=== PATIENT | male | born 1995 | race Caucasian/White ===

== ENCOUNTER 2018-01-22 12:23 | Emergency (ER) | payer OTHER ==
--- NOTE | 2018-01-22 13:08 | ED ---
Throat Pain/Nasal Congestion - HPI Summary HPI Summary: Pt is 22 y/o M who presents to ED c/o throat pain for 3 days. Describes the pain as being on the left side, difficult to swallow, and as if his throat is closing up. Today the pain spread to his ear and prompted him to visit the ED. Notes diaphoresis, hoarse voice, fever, general aches and chills. Denies SOB, visual changes, joint pain, or headache. Visited family [facility] where he had a negative strep test and was given amoxicillin 3 days ago, but he feels it hasn t been working since the pain has now spread. - History of Current Complaint Chief Complaint: EDThroatPain Time Seen by Provider: 01/22/18 12:54 Hx Obtained From: Patient Onset/Duration: Lasting Days, Still Present Severity: Worse Since: - today Associated Signs And Symptoms: Positive: Hoarseness - Allergies/Home Medications Allergies/Adverse Reactions: Allergies Allergy/AdvReac Type Severity Reaction Status Date / Time No Known Allergies Allergy Verified 01/22/18 12:34 PMH/Surg Hx/FS Hx/Imm Hx Endocrine/Hematology History: Denies: Hx Diabetes Cardiovascular History: Denies: Hx Cardiomegaly Infectious Disease History: No Infectious Disease History: Denies: Traveled Outside the [place] in Last 30 Days - Family History Known Family History: Positive: Hypertension - Social History Alcohol Use: Weekly Substance Use Type: Reports: None Smoking Status (MU): Never Smoked Tobacco Review of Systems Positive: Fever, Chills, Skin Diaphoresis, Other - general aches Eyes: Negative Positive: Other - hoarseness Negative: Shortness Of Breath Negative: Arthralgia Negative: Headache All Other Systems Reviewed And Are Negative: Yes Physical Exam - Summary Physical Exam Summary: Appearance: Well appearing, no pain distress Skin: warm, dry, reflects adequate perfusion Head/face: normal Eyes: EOMI, MARAL ENT: Left tonsillar enlargement with exudate, no midline shift, mucous membranes moist Neck: supple, non-tender Respiratory: CTA, breath sounds present Cardiovascular: RRR, pulses symmetrical Abdomen: non-tender, soft Bowel Sounds: present Musculoskeletal: normal, strength/ROM intact Neuro: normal, sensory motor intact, A&Ox3 Triage Information Reviewed: Yes Vital Signs On Initial Exam: Initial Vitals Temp Pulse Resp BP Pulse Ox 98 F 100 16 129/81 99 01/22/18 12:32 01/22/18 12:32 01/22/18 12:32 01/22/18 12:32 01/22/18 12:32 Vital Signs Reviewed: Yes Diagnostics - Vital Signs Vital Signs Temp Pulse Resp BP Pulse Ox 01/22/18 12:32 98 F 100 16 129/81 99 - Laboratory Lab Statement: Any lab studies that have been ordered have been reviewed, and results considered in the medical decision making process. EENT Course/Dx - Course Course Of Treatment: Negative rapid strep 2. Exudative tonsillitis mostly on the left without evidence for peritonsillar abscess. Well-appearing with mild hoarse voice but no hot potato voice or trismus. Treated with steroids here. Continue same outpatient. He is already on antibiotics. Follow-up with [facility]. - Differential Diagnoses Differential Diagnoses: Other - Mononucleosis, strep tonsillitis, viral etiology , peritonsillar abscess - Diagnoses Provider Diagnoses: Tonsillitis Discharge - Sign-Out/Discharge Documenting (check all that apply): Patient Departure - Discharge - Discharge Plan Condition: Improved Disposition: HOME Prescriptions: Dexamethasone TAB* [Decadron TAB*] 8 mg PO DAILY #8 tab Patient Education Materials: Tonsillitis (ED) Referrals: [facility] - Jhonathan PHILLIPS [Primary Care Provider] - Additional Instructions: Tylenol, ibuprofen as needed. Soft, liquid diet. Return with difficulty breathing, high fever, worse, new symptoms or other concerns as discussed. - Billing Disposition and Condition Condition: IMPROVED Disposition: Home - Attestation Statements Document Initiated by Scribe: Yes Documenting Scribe: Ainsley Carrera Provider For Whom Tai is Documenting (Include Credential): Dr. Jesús Abdullahi MD Scribe Attestation: Ainsley Ellison, scribed for Dr. Jesús Abdullahi MD on 01/22/18 at 1734. Scribe Documentation Reviewed: Yes Provider Attestation: The documentation as recorded by the Ainsley mauricio accurately reflects the service I personally performed and the decisions made by me, Dr. Jesús Abdullahi MD
[2018-01-22] MEDS ORDERED: Dexamethasone IV* 4 MG/ML 1 ML (4 MG) IM ONE (13:09)
[2018-01-22 15:26] VITALS: BP 121/85
== END 2018-01-22 15:14 | disposition home or self-care (01) ==
LOC: ED 12:23
DX: J03.90 Acute tonsillitis, unspecified (principal)
CPT/HCPCS: 87651; 96372; 99282; J1100

== ENCOUNTER 2019-03-17 14:50 | Emergency (ER) | payer OTHER ==
--- OUTSIDE RECORDS SUMMARY | 2019-03-17 14:55 | XMS REPORT | Continuity of Care Document ---
:1995 External Reference #:[id number] Author Name Lisandra Dior PA-C Address [address] [place] [address] Care Team Providers Name Role Phone [facility] Care Team Information Claim Auditor [phone] Problems Description No Information Available Social History Type Date Description Comments Sex Unknown Tobacco Use Start: Unknown Never Smoked Cigarettes Tobacco Use Start: Unknown Never Smoked Cigars Tobacco Use Start: Unknown Never Smoked A Pipe Smokeless Tobacco Never Used Smokeless Tobacco ETOH Use Currently occasionally consumes alcohol Tobacco Use Start: Unknown Patient has never smoked Smoking Status Reviewed: 02/14/19 Patient has never smoked Allergies, Adverse Reactions, Alerts Description No Known Drug Allergies Medications Active Medications SIG Qnty Indications Ordering Provider Date Clindamycin HCL take 1 pill 3 42caps J03.01 Juan Navarrete 02/14/2019 300mg times a day for 2 MD Nickie Capsules weeks. Vyvanse daily Unknown 70mg Capsules Sertraline HCL 1 by mouth every [facility] 100mg at bedtime Tablets History Medications Clindamycin HCL take 1 pill 3 42caps J32.8 Juan Navarrete 01/23/2019 - 300mg times a day for MD Nickie 02/13/2019 Capsules 2 weeks. Prednisone 4 tabs by mouth 21tabs J32.8 Juan Navarrete 01/23/2019 - 10mg Tablets every day x3 d, MD Nickie 02/13/2019 then 2 tabs by mouth every day x3d, then 1 tab by mouth every day x3d, then off Immunizations Description No Information Available Vital Signs Date Vital Result Comment 02/14/2019 10:13am Body Temperature 98.2 F Weight 160.00 lb Weight 72.576 kg Height 72 inches 6'0" Height in cm's 182.9 cm BMI (Body Mass Index) 21.7 kg/m2 01/23/2019 9:50am Weight 160.00 lb Weight 72.576 kg Height 72 inches 6'0" Height in cm's 182.9 cm BMI (Body Mass Index) 21.7 kg/m2 Results Test Acquired Date Facility Test Result H/L Range Note Laboratory test 02/14/2019 [facility] Culture <pending > finding c/o [facility] [place] [address] [phone] Procedures Description No Information Available Medical Devices Description No Information Available Encounters Type Date Location Provider Dx Diagnosis Office Visit 02/14/2019 [place] Zora [email or web address] Acute recurrent 10:00a 04/05/07 [facility] streptococcal tonsillitis Office Visit 01/23/2019 [place] Zora [email or web address] Other chronic 9:30a 04/05/07 [facility] sinusitis J03.01 Acute recurrent streptococcal tonsillitis Assessments Date Code Description Provider 02/14/2019 [email or web address] Acute recurrent streptococcal tonsillitis HERMANN Vann 01/23/2019 J32.8 Other chronic sinusitis Lisandra Dior PA-C 01/23/2019 J03.01 Acute recurrent streptococcal tonsillitis HERMANN Vann Plan of Treatment No Information Available Functional Status Description No Information Available Mental Status Description No Information Available Referrals Description No Information Available
--- OUTSIDE RECORDS SUMMARY | 2019-03-17 14:55 | XMS REPORT | Continuity of Care Document ---
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 No Information Available Social History Type Date Description Comments Sex Unknown Tobacco Use Start: Unknown Never Smoked Cigarettes Tobacco Use Start: Unknown Never Smoked Cigars Tobacco Use Start: Unknown Never Smoked A Pipe Smokeless Tobacco Never Used Smokeless Tobacco ETOH Use Currently occasionally consumes alcohol Tobacco Use Start: Unknown Patient has never smoked Smoking Status Reviewed: 01/23/19 Patient has never smoked Allergies, Adverse Reactions, Alerts Description No Known Drug Allergies Medications Active Medications SIG Qnty Indications Ordering Provider Date Clindamycin HCL take 1 pill 3 42caps J32.8 Juan Navarrete 01/23/2019 300mg times a day for 2 MD Nickie Capsules weeks. Prednisone 4 tabs by mouth 21tabs J32.8 Juan Navarrete 01/23/2019 10mg Tablets every day x3 d, MD Nickie then 2 tabs by mouth every day x3d, then 1 tab by mouth every day x3d, then off Vyvanse daily Unknown 70mg Capsules Sertraline HCL 1 by mouth every [facility] 100mg at bedtime Tablets Immunizations Description No Information Available Vital Signs Date Vital Result Comment 01/23/2019 9:50am Weight 160.00 lb Weight 72.576 kg Height 72 inches 6'0" Height in cm's 182.9 cm BMI (Body Mass Index) 21.7 kg/m2 02/08/2018 10:39am Weight 180.00 lb Weight 81.648 kg Height 72 inches 6'0" Height in cm's 182.9 cm BMI (Body Mass Index) 24.4 kg/m2 Results Description No Information Available Procedures Description No Information Available Medical Devices Description No Information Available Encounters Type Date Location Provider Dx Diagnosis Office Visit 01/23/2019 Mohan Naqvi, J32.8 Other chronic 9:30a 04/05/07 [facility] sinusitis J03.01 Acute recurrent streptococcal tonsillitis Assessments Date Code Description Provider 01/23/2019 J32.8 Other chronic sinusitis Lisandra Dior PA-C 01/23/2019 J03.01 Acute recurrent streptococcal tonsillitis HERMANN Vann Plan of Treatment No Information Available Functional Status Description No Information Available Mental Status Description No Information Available Referrals Description No Information Available
[2019-03-17 15:26] VITALS: BP 138/71
--- NOTE | 2019-03-17 15:59 | UC ---
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 presents with 2 week history of subjective fever and night sweats. States he has been waking up during the night feeling "overly hot" with profuse sweating despite his room being cool. States he has a history of frequent strep and has been seen by ENT at his home who has recommended that his tonsils be removed. No recent travel out of the country. Denies headache, neck pain or stiffness, rash, ear pain, nasal congestion, sore throat, cough, chest pain, shortness of breath, abdominal pain, back or flank pain, nausea, vomiting, diarrhea, dysuria, frequency, urgency, dysuria, hematuria, joint pain, or myalgias. - History of Current Complaint Chief Complaint: UCGeneralIllness Stated Complaint: FEVER Time Seen by Provider: 03/17/19 15:03 Hx Obtained From: Patient Pain Intensity: 0 - Allergy/Home Medications Allergies/Adverse Reactions: Allergies Allergy/AdvReac Type Severity Reaction Status Date / Time No Known Allergies Allergy Verified 03/17/19 15:21 Home Medications: Home Medications Lisdexamfetamine (NF) [Vyvanse (NF)] 70 mg PO DAILY 03/17/19 [History Confirmed 03/17/19] Sertraline* [Zoloft*] 150 mg PO DAILY 03/17/19 [History Confirmed 03/17/19] PMH/Surg Hx/FS Hx/Imm Hx Previously Healthy: Yes Psychological History: Anxiety, Other - ADHD - Surgical History Surgical History: Yes Surgery Procedure, Year, and Place: DEVIATED SEPTUM SURGERY. WISDOM TEETH - Family History Known Family History: Positive: Hypertension - Social History Occupation: Student Lives: Dormitory/Roommates Alcohol Use: Weekly Alcohol Amount: a few cocktails Substance Use Type: None Smoking Status (MU): Never Smoked Tobacco Review of Systems All Other Systems Reviewed And Are Negative: Yes Constitutional: Positive: Fever - Subjective Skin: Negative: Rash Eyes: Negative: Drainage, Eye Redness ENT: Negative: Sore Throat, Ear Ache, Nasal Discharge, Sinus Congestion, Sinus Pain/Tenderness Respiratory: Negative: Shortness Of Breath, Cough Cardiovascular: Negative: Palpitations, Chest Pain Gastrointestinal: Negative: Abdominal Pain, Vomiting, Diarrhea, Nausea Genitourinary: Negative: Dysuria, Hematuria, Frequency, Urgency Musculoskeletal: Negative: Arthralgia, Myalgia Neurological: Negative: Headache Is Patient Immunocompromised?: No Physical Exam - Summary Physical Exam Summary: GENERAL APPEARANCE: Well developed, well nourished, alert and cooperative, and appears to be in no acute distress. EYES: Conjunctiva clear. No drainage. EARS: External auditory canals and tympanic membranes clear, hearing grossly intact. NOSE: No nasal discharge. THROAT: Pharynx normal. No tonsilar inflammation, swelling, exudate, or lesions. Uvula midline. NECK: Neck supple, non-tender without lymphadenopathy. CARDIAC: Normal S1 and S2. No S3, S4 or murmurs. Rhythm is regular. There is no peripheral edema, cyanosis or pallor. Extremities are warm and well perfused. Capillary refill is less than 2 seconds. Peripheral pulses intact. LUNGS: Clear to auscultation without rales, rhonchi, wheezing or diminished breath sounds. ABDOMEN: Positive bowel sounds. Soft, nondistended, nontender. No guarding or rebound. No masses or hepatosplenomegally. MUSKULOSKELETAL: ROM intact to all extremities. No joint erythema or tenderness. Normal muscular development. Normal gait. SKIN: Skin normal color, texture and turgor with no lesions or eruptions. 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 presents with 2 week history of subjective fever and night sweats. States he has been waking up during the night feeling "overly hot" with profuse sweating despite his room being cool. States he has a history of frequent strep and has been seen by ENT at his home who has recommended that his tonsils be removed. No recent travel out of the country. Denies headache, neck pain or stiffness, rash, ear pain, nasal congestion, sore throat, cough, chest pain, shortness of breath, abdominal pain, back or flank pain, nausea, vomiting, diarrhea, dysuria, frequency, urgency, dysuria, hematuria, joint pain, or myalgias. Afebrile. Mildly tachycardic otherwise vital signs stable. Patient's exam was overall unremarkable except for the mild tachycardia. 12-lead EKG showed sinus tachycardia without ectopy, ST elevation, or T-wave abnormalities. Rapid strep test was negative. Results were reviewed with the patient. We discussed that with the vagueness of his symptoms that do not have a clear sense of their cause although I do not feel they are of urgent concern. Patient was offered to have some additional labs and a chest x-ray performed for further evaluation of symptoms persist watchful waiting and follow up with his primary care provider when he returns home from school and the patient is electing for the latter. He is to follow-up with his primary care provider within one week or the next available appointment. Anticipatory guidance and warning symptoms requiring immediate evaluation in the emergency room were reviewed with the patient. Verbalizes understanding and agrees with plan of care. - Diagnoses Provider Diagnosis: Unexplained night sweats, Tachycardia Discharge ED - Sign-Out/Discharge Documenting (check all that apply): Patient Departure All imaging exams completed and their final reports reviewed: No Studies - Discharge Plan Condition: Stable Disposition: HOME Patient Education Materials: Tachycardia (ED) Referrals: No Primary Care Phys,NOPCP [Primary Care Provider] - Additional Instructions: The EKG performed in the clinic today was normal except for a mildly elevated heart rate. The rapid strep test performed in the clinic today was negative. Your exam was overall unremarkable and there was no clear indication of any infectious process although I cannot fully rule this out at this time. After discussing options for further evaluation you are electing to follow-up with your primary care provider for any additional testing. Follow-up with your primary care provider within one week or at next available appointment for further evaluation especially if symptoms persist. Seek immediate medical attention in the emergency room if you develop a fever greater than 100.5 F, have any chest pain, shortness of breath, severe abdominal pain, persistent vomiting, or any worsening of symptoms. - Billing Disposition and Condition Condition: STABLE Disposition: Home
== END 2019-03-17 16:25 | disposition home or self-care (01) ==
LOC: UCEAST 14:50
DX: R00.0 Tachycardia, unspecified (principal); R61 Generalized hyperhidrosis; R50.9 Fever, unspecified; F90.9 Attention-deficit hyperactivity disorder, unspecified type
CPT/HCPCS: 87651; 93005; 99211; G0463